=== PATIENT | female | born 1945 | race Two or more races ===

== ENCOUNTER 2023-07-14 15:54 | Inpatient (IN) | payer OTHER ==
[~2023-07-14] VITALS: Ht 172.7 cm; Wt 104.3 kg
[2023-07-14 16:07] VITALS: O2SAT 97
[2023-07-14 17:03] LABS: BASOPHILS # (AUTO) 0.1 K/uL (0.0-0.2); EOSINOPHILS # (AUTO) 0.6 K/uL (0.0-0.7); EOSINOPHILS % (AUTO) 7.3 % (0.0-6.0); HEMATOCRIT 38 % (33-45); HEMOGLOBIN 12.6 g/dL (11.5-14.8); LYMPHOCYTES # (AUTO) 1.9 K/uL (0.8-4.8); LYMPHOCYTES % (AUTO) 23.9 % (20.0-44.0); MEAN CORPUSCULAR HEMOGLOBIN 30 PG (26.0-33.0); MEAN CORPUSCULAR HGB CONC 33 g/dl (31.0-36.0); MEAN CORPUSCULAR VOLUME 93 fL (82-100); MONOCYTES # (AUTO) 0.6 K/uL (0.1-1.30); MONOCYTES % (AUTO) 7.3 % (2.0-12.0); NEUTROPHILS # (AUTO) 4.7 K/uL (1.8-8.9); NEUTROPHILS % (AUTO) 60.5 % (43.0-81.0); PLATELET COUNT (AUTO) 219 K/uL (150-450); RED BLOOD CELL COUNT(AUTO) 4.14 MIL/uL (4.0-5.2); RED CELL DISTRIBUTION WIDTH 14.8 % (11.5-15.0); WHITE BLOOD COUNT (AUTO) 7.8 K/uL (4.3-11.0)
[2023-07-14 17:18] LABS: CALCIUM, SERUM 9.5 mg/dL (8.5-10.1); CARBON DIOXIDE 21 mmol/L (21-32); CHLORIDE 99 mmol/L (98-107); CREATININE 3.4 mg/dL (0.6-1.3); GLUCOSE 320 mg/dL (74-106); POTASSIUM 4.4 mmol/L (3.5-5.1); SODIUM SERUM 133 mmol/L (136-145); UREA NITROGEN, BLOOD 45 mg/dL (7-18)
[2023-07-14 17:24] LABS: ALANINE AMINOTRANSFERASE 25 U/L (12-78); ALKALINE PHOSPHATASE 72 U/L (46-116); ASPARTATE AMINOTRANSFERASE 18 U/L (15-37); BILIRUBIN,DIRECT 0.1 mg/dL (0.0-0.2); BILIRUBIN,TOTAL 0.3 mg/dL (0.2-1.0); TOTAL PROTEIN, SERUM 7.3 g/dL (6.4-8.2)
[2023-07-14 17:30] LABS: INR 1.02 (0.91-1.10); PARTIAL THROMBOPLASTIN TIME 27.4 SEC (24.3-34.3); PROTHROMBIN TIME 10.8 SECS (9.2-11.1)
[2023-07-14] MEDS ORDERED: DEXTROSE 50%-WATER 50 ML DISP.SYRIN IV PRN (18:00)
[2023-07-14] MEDS ORDERED: ONDANSETRON HCL/PF 4 MG/2 ML VIAL IVP PRN (18:00)
[2023-07-14] MEDS ORDERED: Z GUARD REMEDY 4 OZ OINT TP PRN (18:00)
[2023-07-14] MEDS ORDERED: ZOLPIDEM TARTRATE 5 MG TABLET PO PRN (18:00)
[2023-07-14] MEDS ORDERED: BENZONATATE 100 MG CAPSULE PO PRN (18:00)
[2023-07-14] MEDS ORDERED: ACETAMINOPHEN 325 MG TABLET PO PRN (18:00)
[2023-07-14] MEDS ORDERED: ISOS60TA72 PO (18:01)
[2023-07-14] MEDS ORDERED: SITA25TA PO (18:01)
[2023-07-14] MEDS ORDERED: LINA5TAB PO (18:01)
[2023-07-14] MEDS ORDERED: IRBE150T28 PO (18:01)
[2023-07-14] MEDS ORDERED: ROSU40TA PO (18:01)
[2023-07-14] MEDS ORDERED: EZET10TA16 PO (18:01)
[2023-07-14] MEDS ORDERED: AMLO2.5T2 PO (18:02)
[2023-07-14] MEDS ORDERED: CLOP75TA15 PO (18:02)
[2023-07-14] MEDS ORDERED: FURO-145 PO (18:02)
[2023-07-14] MEDS ORDERED: ACET325C7 PO (18:02)
[2023-07-14] MEDS ORDERED: MONT10TA22 PO (18:02)
[2023-07-14] MEDS ORDERED: METO50TA16 PO (18:02)
[2023-07-14] MEDS ORDERED: MEMA5TAB PO (18:02)
[2023-07-14] MEDS ORDERED: HUM10VIA SQ ×2 (18:02)
[2023-07-14] MEDS: BLOOD SUGAR DIAGNOSTIC 1 EACH STRIP IN SCH (23:19)
[2023-07-15 06:54] LABS: BASOPHILS # (AUTO) 0.1 K/uL (0.0-0.2); BASOPHILS % (AUTO) 1.1 % (0.0-2.0); EOSINOPHILS # (AUTO) 0.5 K/uL (0.0-0.7); EOSINOPHILS % (AUTO) 6.2 % (0.0-6.0); HEMATOCRIT 38 % (33-45); HEMOGLOBIN 12.6 g/dL (11.5-14.8); LYMPHOCYTES # (AUTO) 2.7 K/uL (0.8-4.8); LYMPHOCYTES % (AUTO) 34.4 % (20.0-44.0); MEAN CORPUSCULAR HEMOGLOBIN 31 PG (26.0-33.0); MEAN CORPUSCULAR HGB CONC 34 g/dl (31.0-36.0); MEAN CORPUSCULAR VOLUME 92 fL (82-100); MONOCYTES # (AUTO) 0.6 K/uL (0.1-1.30); MONOCYTES % (AUTO) 7.6 % (2.0-12.0); NEUTROPHILS % (AUTO) 50.7 % (43.0-81.0); PLATELET COUNT (AUTO) 207 K/uL (150-450); RED CELL DISTRIBUTION WIDTH 14.7 % (11.5-15.0); WHITE BLOOD COUNT (AUTO) 7.9 K/uL (4.3-11.0)
[2023-07-15 06:57] LABS: CALCIUM, SERUM 9.9 mg/dL (8.5-10.1); CARBON DIOXIDE 21 mmol/L (21-32); CHLORIDE 101 mmol/L (98-107); CREATININE 3.6 mg/dL (0.6-1.3); GLUCOSE 288 mg/dL (74-106); MAGNESIUM 2.2 mg/dL (1.8-2.4); PHOSPHORUS 3.5 mg/dL (2.5-4.9); POTASSIUM 4.2 mmol/L (3.5-5.1); SODIUM SERUM 134 mmol/L (136-145); UREA NITROGEN, BLOOD 55 mg/dL (7-18)
[2023-07-15 06:58] LABS: INR 1.03 (0.91-1.10); PROTHROMBIN TIME 10.9 SECS (9.2-11.1)
[2023-07-15 07:00] VITALS: BP 92/55; TEMP 97.7; O2SAT 98
[2023-07-15] MEDS: PANTOPRAZOLE 40 MG TABLET.DR PO SCH (07:30)
[2023-07-15] MEDS: AMLODIPINE BESYLATE 2.5 MG TABLET PO SCH (09:30)
[2023-07-15] MEDS ORDERED: HEPARIN SODIUM, PORCINE 1,000 UNIT/ML VIAL ONE (10:20)
[2023-07-15] MEDS ORDERED: IODIXANOL 320MG/ML 0 ML IV ONE (10:20)
[2023-07-15] MEDS ORDERED: LIDOCAINE HCL/MPF 1% 30 ML VIAL IJ ONE (10:20)
[2023-07-15] MEDS ORDERED: IV SET PRIMARY PUMP SET 1 EA INFUS.SET MC ONE (10:41)
[2023-07-15] MEDS: CEFAZOLIN 2 GM in IV D5W 100 ML IV ONE (11:00)
[2023-07-15] MEDS ORDERED: FENTANYL PF 100MCG/2ML AMPUL ONE (11:04)
[2023-07-15] MEDS ORDERED: MIDAZOLAM HCL 2 MG/2ML VIAL ONE (11:17)
[2023-07-15] MEDS: INSULIN REGULAR, HUMAN 100 UNIT/ML 3 ML VIAL SQ PRN (12:30)
[2023-07-15 16:05] VITALS: BP 123/73; TEMP 97.5; O2SAT 100
[2023-07-15] MEDS: MEMANTINE HCL 5 MG TABLET PO SCH (16:54)
[2023-07-15 16:55] VITALS: BP 127/73
[2023-07-15] MEDS: FUROSEMIDE 20 MG TABLET PO SCH (16:55)
[2023-07-15] MEDS: METOPROLOL TARTRATE 50 MG TABLET PO SCH (16:55)
[2023-07-15] MEDS: CEFAZOLIN 1 GM in IV D5W 50 ML IV SCH (17:42)
[2023-07-15] MEDS ORDERED: INSULIN NPH/REG 70/30 MIX INJ 100 UNIT/ML VIAL SQ SCH (22:00)
[2023-07-16] MEDS ORDERED: EZETIMIBE 10 MG TABLET PO SCH (09:00)
[2023-07-16] MEDS ORDERED: MONTELUKAST SODIUM (10MG) 10 MG TABLET PO SCH (09:00)
[2023-07-16] MEDS ORDERED: LINAGLIPTIN 5 MG TABLET PO SCH (09:00)
[2023-07-16] MEDS ORDERED: INSULIN NPH/REG 70/30 MIX INJ 100 UNIT/ML VIAL SQ SCH (09:00)
== END 2023-07-15 19:15 | disposition home or self-care (01) | DRG 698 ==
LOC: ER 16:11 → MED 22:21
PROVIDERS: ADMIT Nurse Practitioner Family; ATTEND Internal Medicine
PROC: 5A1D70Z Performance of Urinary Filtration, Intermittent, Less than 6 Hours Per Day (ICD-10-PCS; principal; 2023-07-15)
PROC: 0J2SXYZ Change Other Device in Head and Neck Subcutaneous Tissue and Fascia, External Approach (ICD-10-PCS; 2023-07-15)
DX: T82.41XA Breakdown (mechanical) of vascular dialysis catheter, initial encounter (principal); N18.6 End stage renal disease; I12.0 Hypertensive chronic kidney disease with stage 5 chronic kidney disease or end stage renal disease; E87.1 Hypo-osmolality and hyponatremia; D63.8 Anemia in other chronic diseases classified elsewhere; E11.22 Type 2 diabetes mellitus with diabetic chronic kidney disease; E11.65 Type 2 diabetes mellitus with hyperglycemia; N25.0 Renal osteodystrophy; Z79.4 Long term (current) use of insulin; Z79.84 Long term (current) use of oral hypoglycemic drugs; J45.909 Unspecified asthma, uncomplicated; Z20.822 Contact with and (suspected) exposure to COVID-19; Y84.1 Kidney dialysis as the cause of abnormal reaction of the patient, or of later complication, without mention of misadventure at the time of the procedure; Y84.8 Other medical procedures as the cause of abnormal reaction of the patient, or of later complication, without mention of misadventure at the time of the procedure; Y92.531 Health care provider office as the place of occurrence of the external cause
CPT/HCPCS: 36415; 71045-TC; 80048-TC; 80076-TC; 82962-TC; 83735-TC; 84100-TC; 85025-TC; 85610-TC; 85730-TC; 86850-TC; A4223; G0378; J0690; J1644; J1815; J2250; J3010; J3490; J7060